=== PATIENT | female | born 1935 | race Caucasian/White ===

== ENCOUNTER → 2023-05-30 11:07 | Outpatient (REF) | payer OTHER, SELFPAY | LOC: HWRCS 11:07 | PROVIDERS: ATTENDING PHYSICIAN Family Medicine | DX: R01.1 Cardiac murmur, unspecified (principal) | CPT/HCPCS: 93306 ==

== ENCOUNTER 2023-12-05 08:30 | Emergency (ER) | payer OTHER, SELFPAY ==
[2023-12-05 08:32] VITALS: BP 142/102
--- NOTE | 2023-12-05 08:38 | ED.GENMED ---
History of Present Illness
General
Chief Complaint: Back Pain
Source: patient
Exam Limitations: none
Time Seen by Provider: 12/05/23 08:35
History of Present Illness
History of Present Illness:
88-year-old female with history of multiple sclerosis and dementia and high blood pressure presents from home via EMS calling ambulance secondary to chest pain that radiates to the left side of the back. This is associated with shortness of breath
and increased pain with breathing. No recent travel. She is not anticoagulated. She states she has been nauseous and belching as well. The pain is on her left side. No fever or cough. No abdominal pain. No other complaints at this time
Past History
Past History
ED Past Medical History: HTN, Psychiatric (anxiety) and Other (MS, C. difficile, hypokalemia, hyponatremia, mild dementia, )
ED Past Surgical History: Cholecystectomy, Gynecological (Hysterectomy) and Other (Bladder lift)
Social History
Tobacco: Non-smoker
Alcohol: None
Personal:
Living: with family
Employment: Retired
Family History
Family History: Other (Noncontributory)
Phy Exam
Physical Exam
Physical Exam:
General: Well-appearing female no acute respiratory distress
HEENT: Normocephalic atraumatic
Heart: Regular rate and rhythm no murmur
Lungs: Clear no wheeze
Abdomen soft nontender nondistended no guarding rebound normal bowel sounds extremities: No cyanosis or edema
Skin: Warm no rash
Course
Orders/Labs/Results
Orders:
Orders
12/05/23 08:31
Electrocardiogram (*1) Urgent
Reason for Study: Chest Pain
EKG- Treatment ONCE
12/05/23 08:37
CT Chest Pe Study Urgent
Comment:
Reason For Exam: chest pain
CR Chest Portable - 1 View Urgent
Comment:
Reason For Exam: chest pain, sob
Reason Study Needs to be Portable: Patient Unstable
12/05/23 09:04
NT-proBNP Urgent
Troponin I Urgent
12/05/23 09:05
Complete Blood Count/With Diff Urgent
12/05/23 09:15
Comprehensive Metabolic Panel Urgent
Lipase Urgent
12/05/23 11:24
Acetaminophen [Tylenol] 650 mg PO NOW STA
Abnormal Lab Results
12/05/23
09:15
BUN 20 H mg/dl
(7-17)
Glucose 107 H mg/dl
(70-99)
Total Bilirubin 1.4 H mg/dl
(0.2-1.3)
12/05/23 09:05
12/05/23 09:15
Vital Signs
Initial and Last Documented VS:
Initial Vital Signs
Pulse Resp BP Pulse Ox
80 17 142/102 94
12/05/23 08:32 12/05/23 08:32 12/05/23 08:32 12/05/23 08:32
Last Documented Vital Signs
Temp Pulse Resp BP Pulse Ox
98.1 F 62 18 129/64 97
12/05/23 08:52 12/05/23 10:00 12/05/23 10:00 12/05/23 10:00 12/05/23 10:00
MDM/Problems Addressed
Differential Diagnosis Includes:
Pleuritic left-sided chest pain. Consider chest wall strain versus pneumonia versus pneumothorax versus PE versus dissection.
Reviewed chart. History of dementia and multiple sclerosis. Not hypoxic nor she tachycardic. Will obtain labs and EKG as well as portable chest x-ray and CT of chest
*Critical Care Note
Total Time (30-74mins, 75-104mins- exclusive of procedures): Not Applicable
Update Note
Update Note:
EKG shows sinus rhythm without acute ischemic changes. Rate of 71
Chest x-ray question mild pulmonary edema. CT of chest was ordered to evaluate for PE or dissection. This was negative study. Patient notes reproducible pain to the left chest. Suspect chest wall discomfort. No rash to suggest shingles upon
reassessment. Will recommend Tylenol or ibuprofen. Stable for discharge. The daughter is in the room currently and spoke with her regarding the she is agreeable to the
ED Attending Note
-
Portions of this chart may have been created with voice recognition software.� Occasional wrong word or��sound alike� substitutions may have occurred due to the inherent limitations of voice recognition software.
Discharge Plan
Departure
Patient Disposition: Home (Routine Discharge)
Date of Disposition: 12/05/23
Time of Disposition: 11:26
Patient with high blood pressure during this ER visit?: No
Discharge Problem:
Pain, chest wall
Instructions: Chest Pain That Is Not Caused by the Heart (DC)
Prescriptions:
No Action
donepezil 5 MG tablet
5 mg PO HS
alprazolam 0.25 MG tablet
0.25 mg PO PRN PRN (Reason: anxiety)
pantoprazole 40 MG tablet,delayed release (DR/EC)
40 mg PO PRN PRN (Reason: stomach pain)
memantine 10 MG tablet
10 mg PO BID
metoprolol succinate [Toprol XL] 50 MG tablet extended release 24 hr
50 mg PO DAILY
amlodipine [Norvasc] 5 mg Tablet
5 mg PO DAILY
lidocaine 5 % adhesive patch,medicated
1 patch topical DAILY 15 Days Qty: 15 0RF
Referrals:
Alexi Lewis Jr., DO [Family Provider] -
Activity Restrictions/Additional Instructions:
Workup today is negative for any obvious acute cardiac or pulmonary problem. This may be a muscular strain. You may use ibuprofen or Tylenol for pain. Return here for worsening symptoms otherwise follow-up with your doctor
Interventions
Interventions:
*Risk Screen - Suicide Last Done: 12/05/23 08:36
*Neglect/Abuse Screening Last Done: 12/05/23 08:35
ED- Fall Risk Assessment Last Done: 12/05/23 08:37
*ED COVID-19 Vaccine History Last Done: 12/05/23 08:35
ED- Cardiac Assessment Last Done: 12/05/23 08:45
ED-Musculoskeletal Assessment Last Done: 12/05/23 09:26
Discharge Date and Time
Print Language: KYRGYZ
[2023-12-05 09:00] VITALS: BP 140/108
[2023-12-05 09:27] LABS: % Basophils 0.5 % (0-2); % Eosinophils 2.1 % (0-6); % Immature Granulocytes 0.3 % (0-0.5); % Lymphocytes 23.6 % (20.5-51.1); % Monocytes 7.5 % (1.7-9.3); Absolute Eosinophils 0.1 10^3/uL (0-0.7); Absolute Lymphocytes 1.4 10^3/uL (1.2-3.4); Absolute Monocytes 0.5 10^3/uL (0.1-0.6); Mean Corp Hgb Conc. 33.3 g/dL (33.0-37.0); Mean Corpuscular Hgb 30.9 pg (27.0-31.0); Mean Corpuscular Volume 92.7 fL (81.0-99.0); Mean Platelet Volume 8.9 fL (7.4-10.4); Nucleated Red Blood Cells % 0 %; Platelet Count 271 10^3/uL (130-400); Red Blood Cell Count 4.53 10^6/uL (4.20-5.40); Red Cell Dist. Width 12.6 % (11.5-14.5); White Blood Cell Count 6.1 10^3/uL (4.8-10.8)
[2023-12-05 09:48] LABS: ALT (SGPT) 14 U/L (0-35); AST (SGOT) 22 U/L (14-36); Albumin 4.2 g/dl (3.5-5.0); Alkaline Phosphatase 106 U/L (38-126); Blood Urea Nitrogen 20 mg/dl (7-17); Carbon Dioxide 25 mmol/L (22-30); Chloride 104 mmol/L (98-107); Glucose 107 mg/dl (70-99); Lipase 67 U/L (23-300); Potassium 4.2 mmol/L (3.5-5.1); Sodium 142 mmol/L (135-145); Total Bilirubin 1.4 mg/dl (0.2-1.3); eGFR > 60.00
[2023-12-05 09:55] LABS: NT-proBNP 235 pg/ml; Troponin I < 0.012 ng/ml
[2023-12-05 10:00] VITALS: BP 129/64
[2023-12-05 11:00] VITALS: BP 145/75
[2023-12-05] MEDS: TYLENOL 650 MG PO (11:30)
== END 2023-12-05 12:31 | disposition home or self-care (01) ==
LOC: EMR 08:30
PROVIDERS: Physician Assistant; EMERGENCY PHYSICIAN Emergency Medicine; FAMILY PHYSICIAN Family Medicine
DX: R07.89 Other chest pain (principal); I10 Essential (primary) hypertension; F03.90 Unspecified dementia, unspecified severity, without behavioral disturbance, psychotic disturbance, mood disturbance, and anxiety; Z90.49 Acquired absence of other specified parts of digestive tract; Z90.710 Acquired absence of both cervix and uterus; G35 Multiple sclerosis
CPT/HCPCS: 99285; 71045; 71275; 80053; 83690; 83880; 84484; 85025; 93005; Q9967

== ENCOUNTER → 2023-12-14 11:42 | Outpatient (REF) | payer OTHER, SELFPAY | LOC: HWRAD 11:42 | PROVIDERS: ATTENDING PHYSICIAN Family Medicine | DX: M51.34 Other intervertebral disc degeneration, thoracic region (principal) | CPT/HCPCS: 72072 ==

== ENCOUNTER → 2023-12-29 12:12 | Outpatient (REF) | payer OTHER, SELFPAY | LOC: MRI 3T 12:12 | PROVIDERS: ATTENDING PHYSICIAN Pain Medicine Interventional Pain Medicine; FAMILY PHYSICIAN Family Medicine | DX: S22.060A Wedge compression fracture of T7-T8 vertebra, initial encounter for closed fracture (principal) | CPT/HCPCS: 72146 ==

== ENCOUNTER → 2024-03-19 11:57 | Outpatient (REF) | payer OTHER, SELFPAY | LOC: HWRAD 11:57 | PROVIDERS: ATTENDING PHYSICIAN Family Medicine | DX: S22.000A Wedge compression fracture of unspecified thoracic vertebra, initial encounter for closed fracture (principal) | CPT/HCPCS: 71046; 72072 ==

== ENCOUNTER 2024-03-31 09:50 | Inpatient (IN) | payer OTHER, SELFPAY ==
[2024-03-30 19:08] VITALS: BP 140/70
[2024-03-30 19:21] LABS: % Basophils 0.3 % (0-2); % Immature Granulocytes 0.3 % (0-0.5); % Lymphocytes 18.7 % (20.5-51.1); % Monocytes 14.7 % (1.7-9.3); Absolute Lymphocytes 0.6 10^3/uL (1.2-3.4); Absolute Monocytes 0.4 10^3/uL (0.1-0.6); Hematocrit 32.4 % (37.0-47.0); Hemoglobin 11.2 g/dL (12.0-16.0); Mean Corp Hgb Conc. 34.6 g/dL (33.0-37.0); Mean Corpuscular Hgb 30.7 pg (27.0-31.0); Mean Corpuscular Volume 88.8 fL (81.0-99.0); Mean Platelet Volume 8.7 fL (7.4-10.4); Nucleated Red Blood Cells % 0 %; Platelet Count 138 10^3/uL (130-400); Red Blood Cell Count 3.65 10^6/uL (4.20-5.40); Red Cell Dist. Width 13.3 % (11.5-14.5)
[2024-03-30 19:39] LABS: COVID-19 Antigen Negative (Negative)
--- NOTE | 2024-03-30 19:39 | ED.GENMED ---
History of Present Illness
General
Chief Complaint: Cold/Flu/URI Symptoms
Source: patient
Exam Limitations: none
Time Seen by Provider: 03/30/24 19:18
History of Present Illness
History of Present Illness:
88yoF with a history of multiple sclerosis and hypertension presenting via EMS for evaluation after syncopal episode. Patient has not been feeling well for the past 2 days. She states she has been in bed mostly and has not been eating due to
decreased appetite. It is patient's 's birthday today and she went down to the kitchen to eat some dinner with her family. While she was sitting at the dining room table, she recalls feeling very flushed. She took off her robe due to her
symptoms. The next thing she remembers her family was calling 911 and telling her that she passed out. She believes she was only unconscious for about 1 to 2 minutes. She believes she was dizzy beforehand but is not sure. She denies any chest
pain or shortness of breath. Patient did not fall during the incident and was still in her chair when she regained consciousness. Of note, her is also sick with similar symptoms.
Past History
Past History
ED Past Medical History: HTN, Psychiatric (anxiety) and Other (MS, C. difficile, hypokalemia, hyponatremia, mild dementia, )
ED Past Surgical History: Cholecystectomy, Gynecological (Hysterectomy) and Other (Bladder lift)
Social History
Tobacco: Non-smoker
Alcohol: None
Personal:
Living: with family
Employment: Retired
Family History
Family History: Other (Noncontributory)
Phy Exam
General Physical Exam
General Presentation: well appearing and no apparent distress
General age: appears stated age
General Skin: warm and dry
General Habitus: normal
General Mental: alert
ENT Exam
ENT Exam: normocephalic
Cardiovascular Exam
Cardiovascular Exam: regular rate/rhythm and no murmur
Pulmonary Exam
Pulmonary Exam: lungs clear, no respiratory distress, no rales, no crackles and no rhonchi
Gastrointestinal Exam
Gastrointestinal Exam: non tender, soft and non distended
Neurological Exam
Neurological Exam: alert
[place] Coma Scale
Eye Opening: Spontaneous
Verbal Response: Oriented
Motor Response: Obeys Commands
GCS Total Score: 15
Skin Exam
Skin Exam: normal color and warm/dry
Psychiatric Exam
Psychiatric Exam: normal mood/affect
Course
Orders/Labs/Results
Orders:
Orders
03/30/24 19:07
Electrocardiogram (*1) Urgent
Reason for Study: Syncope
03/30/24 19:08
EKG- Treatment ONCE
03/30/24 19:14
COVID-19 Antigen Urgent
Source: Nasal Swab
Complete Blood Count/With Diff Urgent
Comprehensive Metabolic Panel Urgent
Magnesium Urgent
Comment: ADD ON
Influenza A+B Rapid Molecular Urgent
MARIBEL Source: Nasal Swab
Specimen Description:
03/30/24 19:56
Add On- LAB Urgent
Tests Added?: magnesium
0.9% Sodium Chloride 500 ml [Nss] 500 ml IV BOLUS
Potassium Chloride [KCl] 40 meq PO NOW STA
03/30/24 20:46
Troponin I Urgent
03/30/24 23:00
Flush (0.9% Sodium Chloride) [Flush (Nss)] See Dose Instructions IV PER PROTOCOL
03/31/24 00:23
Admit/Transfer Patient As Directed
Co-Sign Provider:
Level of Care: Observation services
Assign to:: Telemetry
Physician / Group: hospitalist
Diagnosis: influenza
Reason for Telemetry: Syncope
Date to Stop Telemetry: 04/02/24
Time to Stop Telemetry: 11:00
PRN Pain Medication Management As Directed
May give lesser potent ordered pain med per pt: Yes
preference::
Protocol:: Medication orders for pain may be administered in a
manner that supports deferring to patient preference
when the pt is:
- Requesting an ordered lesser potent pain medication.
Least to most potent pain medications are defined
as: acetaminophen < NSAID < tramadol < opioids
(morphine, oxycodone, hydromorphone).
- Requesting a lesser dose of the same medication IF
ORDERED.
- Requesting a less intrusive route of administration
if both routes are prescribed by the provider (PO <
IV).
03/31/24 00:24
Code Status As Directed
Resuscitation Status: Full Code
03/31/24 00:39
PRN Pain Medication Management As Directed
May give lesser potent ordered pain med per pt: Yes
preference::
Protocol:: Medication orders for pain may be administered in a
manner that supports deferring to patient preference
when the pt is:
- Requesting an ordered lesser potent pain medication.
Least to most potent pain medications are defined
as: acetaminophen < NSAID < tramadol < opioids
(morphine, oxycodone, hydromorphone).
- Requesting a lesser dose of the same medication IF
ORDERED.
- Requesting a less intrusive route of administration
if both routes are prescribed by the provider (PO <
IV).
03/31/24 02:24
0.9% Sodium Chloride 1000 ml [Nss] 1,000 ml IV 75 mls/hr
Acetaminophen [Tylenol] 650 mg PO Q4HPRN PRN
Bisacodyl [Dulcolax] 10 mg RECTAL [id number] PRN
Docusate W/Senna [Senokot-S] 1 tablet PO BIDPRN PRN
Ondansetron Injectable [Zofran] 4 mg IV Q6HPRN PRN
Polyethylene Glycol Powder [Miralax] 17 grams PO DAILYPRN PRN
03/31/24 02:24
Activity As Directed
Activity Level: With Assistance
Vital Signs As Directed
Frequency: Per unit guidelines
Pulse Ox/spot Check [RESP] Routine
Quantity: 1
Pt Eval And Treat Routine
Activity Level: With Assistance
DX Deep Vein Thrombosis Video Routine
03/31/24 Breakfast
Regular
At Your Request: Full Participation
Basic Metabolic Panel IN AM
Complete Blood Count/No Diff IN AM
03/31/24 08:00
Alprazolam [Xanax] 0.25 mg PO TID
Amlodipine [Norvasc] 5 mg PO DAILY
Aspirin Low Dose EC [Aspir Low (Enteric Coated)] 81 mg PO DAILY
Memantine HCl [Namenda] 10 mg PO BID
Metoprolol Xl [Toprol Xl] 50 mg PO DAILY
Mirabegron Extended Release [Myrbetriq Extended Release] 25 mg PO DAILY
Pantoprazole [Protonix] 40 mg PO DAILY
teriflunomide [Aubagio] See Dose Instructions PO DAILY
03/31/24 18:00
Enoxaparin Sodium [Lovenox] 40 mg SC QPM
03/31/24 22:00
Donepezil [Aricept] 5 mg PO HS
04/02/24 11:00
DC Protocol for Telemetry ONCE
Abnormal Lab Results
03/30/24
19:14
WBC 3.0 L 10^3/uL
(4.8-10.8)
RBC 3.65 L 10^6/uL
(4.20-5.40)
Hgb 11.2 L g/dL
(12.0-16.0)
Hct 32.4 L %
(37.0-47.0)
Absolute Lymphs (auto) 0.6 L 10^3/uL
(1.2-3.4)
Lymphocytes % 18.7 L %
(20.5-51.1)
Monocytes % 14.7 H %
(1.7-9.3)
Sodium 132 L mmol/L
(135-145)
Potassium 3.1 L mmol/L
(3.5-5.1)
Carbon Dioxide 21 L mmol/L
(22-30)
Creatinine 0.5 L mg/dL
(0.6-1.0)
Glucose 118 H mg/dl
(70-99)
Calcium 7.4 L mg/dl
(8.4-10.2)
AST 55 H U/L
(14-36)
Total Protein 5.7 L g/dl
(6.3-8.2)
Albumin 3.2 L g/dl
(3.5-5.0)
03/30/24 19:14
03/30/24 19:14
Vital Signs
Initial and Last Documented VS:
Initial Vital Signs
Pulse Resp Pulse Ox
80 22 93
03/30/24 19:02 03/30/24 19:02 03/30/24 19:02
Last Documented Vital Signs
Temp Pulse Resp BP Pulse Ox
98.6 F 82 17 145/78 92
03/30/24 19:08 03/31/24 02:19 03/31/24 02:19 03/31/24 02:00 03/31/24 02:00
MDM/Problems Addressed
Differential Diagnosis Includes:
88yoF here after a syncopal episode. Sick x 2 days and has not gotten out of bed. Had a syncopal episode this evening which was preceded by a flushed sensation. Denies CP/SOB. Hx of MS. She is afebrile and hemodynamically stable. She is
well-appearing no acute distress. Differential diagnosis includes but is not limited to: Viral illness, dehydration, vasovagal episode, cardiogenic syncope
Initial ED plan: Check cardiac labs, COVID/flu swab, and EKG. IV fluid bolus.
*EKG
Interpreted by ED Provider?: Yes
EKG Intrepretation Date: 03/30/24
Heart Rate: 81
Rate: normal
Rhythm: sinus
[place]: normal axis
Interval: normal interval
QRS Pattern: normal QRS
Ischemia: no ischemia
*Critical Care Note
Total Time (30-74mins, 75-104mins- exclusive of procedures): Not Applicable
Update Note
Update Note:
Patient is positive for influenza A. Potassium 3.1 which was replaced. EKG shows normal sinus rhythm without ischemic changes and troponin is normal. Given degree of weakness, will admit for further evaluation and management.
ED Attending Note
-
Portions of this chart may have been created with voice recognition software.� Occasional wrong word or��sound alike� substitutions may have occurred due to the inherent limitations of voice recognition software.
Discharge Plan
Departure
Patient Disposition: Admit
Date of Disposition: 03/30/24
Time of Disposition: 21:40
Presentation/result/management discussed w/ accepting MD/DO: Hospitalist
Discharge Problem:
Influenza A, Syncope
Interventions
Interventions:
*Risk Screen - Suicide Last Done: 03/30/24 19:08
*General Assessment Last Done: 03/30/24 19:08
*Neglect/Abuse Screening Last Done: 03/30/24 19:08
*ED COVID-19 Vaccine History Last Done: 03/30/24 19:08
ED- Pulmonary Assessment Last Done: 03/30/24 19:10
[2024-03-30 19:46] LABS: ALT (SGPT) 26 U/L (0-35); AST (SGOT) 55 U/L (14-36); Albumin 3.2 g/dl (3.5-5.0); Alkaline Phosphatase 82 U/L (38-126); Blood Urea Nitrogen 11 mg/dl (7-17); Calcium 7.4 mg/dl (8.4-10.2); Carbon Dioxide 21 mmol/L (22-30); Chloride 102 mmol/L (98-107); Glucose 118 mg/dl (70-99); Potassium 3.1 mmol/L (3.5-5.1); Sodium 132 mmol/L (135-145); Total Bilirubin 0.7 mg/dl (0.2-1.3); Total Protein 5.7 g/dl (6.3-8.2); eGFR > 60.00
[2024-03-30 20:00] VITALS: BP 137/71
[2024-03-30 20:11] LABS: Magnesium 1.7 mg/dl (1.6-2.3)
[2024-03-30] MEDS: NSS 500 IV (20:40)
[2024-03-30] MEDS: KCL 40 MEQ PO (20:40)
[2024-03-30 21:00] VITALS: BP 137/83
[2024-03-30 21:17] LABS: Troponin I < 0.012 ng/ml
[2024-03-30 22:00] VITALS: BP 149/83
[2024-03-30 23:00] VITALS: BP 137/76
[2024-03-31] VITALS (13 sets, daily range): BP systolic 113–152; BP diastolic 65–84; O2SAT 85; BMI 27.9
--- NOTE | 2024-03-31 00:38 | HPS.HSE ---
Family Physician
-
Family Physician: Alexi Lewis
Chief Complaint
-
Weakness and lethargy, flulike symptoms
History of Present Illness
This is a 88-year-old female with past medical history significant for Parkinson's, MS, mild dementia, hypertension and GERD who presents to the emergency department with weakness for 3 days and found to have influenza.
Patient tells me that she has been sick for about 3 days. She has been laying in bed, getting up and has decreased appetite. She feels fatigued. She has a mild nonproductive cough. Denies shortness of breath. Patient reported that she has sick
contacts with friends of family member a few days ago but she could not state exactly when. She has had a prior episode of influenza and she states this feels similar to that. She denies having any fevers or chills.
Family saw her today while trying to celebrate her spouses but they, she went down to the kitchen to eat some dinner with her family and while at the dining room table she recalls feeling very flushed. She apparently then had a syncopal episode.
Family believe she was only unconscious for about 1 to 2 minutes. Patient feels that she had may have been dizzy before hand but she is not sure. She denies any chest pain, palpitations.
Patient reports that she had been having some loose stools frequently with mild urinary incontinence and some diarrhea. She usually has constipation. She reports her spouse is sick with similar symptoms.
In the emergency department she was afebrile, blood pressure was 120/80 with a pulse of 82 she was satting well 95% on 1 L. CBC was unremarkable. Electrolytes were notable for a sodium of 132, potassium of 3.1, normal BUN and creatinine. ECG with
normal sinus rhythm, troponin negative.
Medical History
Past Medical History
Past Medical History: Reports GERD, HTN and Other (Parkinson disease, multiple sclerosis, lower urinary tract symptoms,)
Past Surgical History: Reports Other
Social History
Tobacco: Non-smoker
Alcohol: None
Drug: None
Personal:
Living: With Family
Employment: Retired
Family History
Family History: Not pertinent
Allergies / Home Medications
Allergies reflects when Allergies were last updated in [employer].
Home Medications with original date entered in [employer]
Allergy/Medication List:
Allergies
Allergy/AdvReac Type Severity Reaction Status Date / Time
No Known Drug Allergies Allergy Unknown Verified 12/11/22 20:00
Home Medications
alprazolam 0.25 mg tablet 0.25 mg PO TID anxiety 10/02/20
donepezil 5 mg tablet 5 mg PO HS parkinson 10/02/20
memantine 10 mg tablet 10 mg PO BID memory 10/02/20
metoprolol succinate 50 mg tablet,extended release 24 hr (Toprol XL) 50 mg PO DAILY Blood pressure 10/02/20
pantoprazole 40 mg tablet,delayed release 40 mg PO PRN 10/02/20
amlodipine 5 mg tablet (Norvasc) 5 mg PO DAILY Blood Pressure 12/11/22
aspirin 81 mg tablet,delayed release 81 mg PO DAILY 03/30/24
mirabegron 25 mg tablet,extended release 24 hr (Myrbetriq) 25 mg PO DAILY 03/30/24
teriflunomide 7 mg tablet (Aubagio) 7 mg PO DAILY 03/30/24
Review of Systems
-
History Source: Patient
Constitutional: Reports Fatigue
EENT: Reports No Symptoms
Respiratory: Reports Cough
Cardiac: Reports No Symptoms
Abdomen/GI: Reports No Symptoms
: Reports Incontinence
Musculoskeletal: Reports No Symptoms
Skin: Reports No Symptoms
Neurological: Reports Weakness
Endocrine: Reports No Symptoms
Hematologic/Lymphatic: Reports No Symptoms
Psych: Reports No Symptoms
Physical Exam
Vital Signs
Vital Signs
Temp Pulse Resp BP Pulse Ox
98.6 F 82 31 122/84 94
03/30/24 19:08 03/31/24 00:15 03/31/24 00:15 03/31/24 00:00 03/31/24 00:15
Physical Exam
General: Well Developed, Well Nourished, Comfortable, Conversant and Poor Appetite
HEENT: NormoCephalic, Anicteric, Atraumatic, PERRLA and Oxygen
Respiratory: Clear
Cardiac: S1/S2 and Regular Rhythm
GI: Soft, Non Tender, Non Distended and Normal Bowel Sounds
Rectal: Deferred by Provider
Genito-urinary: Deferred by me
Musculoskeletal: No Clubbing, No Cyanosis and No Edema
Skin: Warm
Neuro: AO x 3 and Nonfocal/grossly intact
Hematologic/Lymphatic: No Lymphadenopathy
Psych: Calm
Laboratory Results
-
03/30/24 19:14
03/30/24 19:14
Laboratory Results
Total Bilirubin 0.7 mg/dl (0.2-1.3) 03/30/24 19:14
AST 55 U/L (14-36) H 03/30/24 19:14
ALT 26 U/L (0-35) 03/30/24 19:14
Alkaline Phosphatase 82 U/L (38-126) 03/30/24 19:14
Troponin I < 0.012 ng/ml 03/30/24 20:46
Data Reviewed
-
Medical Tests (Nuc Med, Echo, EKG etc): Image Personally Visualized and interpreted
Lab Data: Labs Reviewed by me
Old Records: Reviewed
Impression/Plan
-
IMPRESSION:
88-year-old with history of multiple sclerosis, hypertension and mild dementia presents to the emergency department following 3 days of weakness and flulike symptoms at home. She had a presyncopal episode today and appears to have been unresponsive
for about a minute. Initial evaluation in the ED is positive for influenza. She has loss of appetite and had decreased p.o. intake she has been laying in bed for about 3 days. Spouse with similar symptoms. She has mild hyponatremia with mild
hypokalemia. Electrolytes are otherwise unremarkable BUN stable. ECG is nonischemic and troponin is negative.
PLAN:
Influenza - Mild oxygen requirement, weakness. On immunosuppresants and symptoms began 3 days ago
- admit to telemetry observation
- start tamiflu for now
- supplemental oxygen, wean as needed
- supportive care
- PT evaluation
Syncope/presyncope - suspect secondary to hypovolemia
- telemetry x 24 hours
- continue iv fluids
- orthostatic vs
- check u/a
- hold off on echo at this time
MS
- continue home aubagio
- continue mirabegron
DVT PPX - lovenox
Code status - full code
[2024-03-31] MEDS: TAMIFLU 75 MG PO ×3 (02:09→20:29)
[2024-03-31] MEDS: FLUSH (NSS) 1 FLUSH IV (02:09)
[2024-03-31] MEDS: NSS 1000 IV ×2 (02:35→16:17)
[2024-03-31 05:35] LABS: Hematocrit 36.2 % (37.0-47.0); Hemoglobin 12.6 g/dL (12.0-16.0); Mean Corp Hgb Conc. 34.8 g/dL (33.0-37.0); Mean Corpuscular Volume 88.9 fL (81.0-99.0); Mean Platelet Volume 8.6 fL (7.4-10.4); Platelet Count 132 10^3/uL (130-400); Red Blood Cell Count 4.07 10^6/uL (4.20-5.40); Red Cell Dist. Width 13.4 % (11.5-14.5); White Blood Cell Count 3.5 10^3/uL (4.8-10.8)
[2024-03-31 05:52] LABS: Urine Albumin 1+ (Neg - Trace); Urine Bilirubin Negative (Negative); Urine Character Slightly Cloudy (Clear); Urine Color Yellow; Urine Glucose Negative (Negative); Urine Ketone 3+ (Negative); Urine Leukocyte 3+ (Negative); Urine Nitrite Negative (Negative); Urine Occult Blood 4+ (Negative); Urine Urobilinogen Negative (Neg - 1+)
[2024-03-31 05:58] LABS: Blood Urea Nitrogen 9 mg/dl (7-17); Calcium 7.7 mg/dl (8.4-10.2); Carbon Dioxide 23 mmol/L (22-30); Chloride 104 mmol/L (98-107); Glucose 86 mg/dl (70-99); Potassium 3.9 mmol/L (3.5-5.1); Sodium 136 mmol/L (135-145); eGFR > 60.00
[2024-03-31 06:38] LABS: Urine Amorphous Seen; Urine Bacteria Many (Negative); Urine Squamous Cell >30 /LPF (Few)
[2024-03-31] MEDS: ASPIR LOW (ENTERIC COATED) 81 MG PO (08:04)
[2024-03-31] MEDS: PROTONIX 40 MG PO (08:04)
[2024-03-31] MEDS: XANAX 0.25 MG PO ×3 (08:05→23:05)
[2024-03-31] MEDS: NAMENDA 10 MG PO ×2 (08:05→20:29)
[2024-03-31] MEDS: TOPROL XL 50 MG PO (08:06)
[2024-03-31] MEDS: NORVASC 5 MG PO (08:06)
[2024-03-31] MEDS: MYRBETRIQ EXTENDED RELEASE 25 MG PO (08:06)
[2024-03-31 08:54] LABS: ALT (SGPT) 29 U/L (0-35); AST (SGOT) 60 U/L (14-36); Albumin 3.4 g/dl (3.5-5.0); Alkaline Phosphatase 85 U/L (38-126); Total Bilirubin 0.6 mg/dl (0.2-1.3); Total Protein 6.1 g/dl (6.3-8.2)
--- NOTE | 2024-03-31 08:59 | PTCARENOTE ---
attempted to remove patient oxygen-- Patient pulse ox down down to 85% on RA. Reapplied oxygen at this time. now 97% on 2L NC
--- NOTE | 2024-03-31 09:33 | W.PN.HOSP.TC ---
Today's Communication/Plan
-
see outlined plan
Assessment / Plan
Assessment / Plan
Assessment:
Acute hypoxic respiratory insufficiency on 1-2L NC
- related to influenza
- wean O2 as able
Early sepsis (tachypnea, leukopenia)
Acute influenza A infection
- continue Tamiflu, day 1
- continue supportive care
- CXR pending
possible UTI
Hx of prolapsed uterus
- start Rocephin, day 1 pending cultures
Syncope/pre-syncope
- monitor tele
- continue IVF
Acute hyponatremia - resolved
Acute hypokalemia - resolved
Hypocalcemia - monitor
Generalized weakness
- PT/OT evals
Hx of C. Diff
- Vanco BID
Hx of MS
- hold Aubagio - immunosuppression agent
- hold Mirabegron
Dementia
- unknown subtype
- continue Memantine/Donepezil/Xanax
Essential HTN
- continue BB
DVT ppx: Lovenox
Code: Full
Non-billable for 03/31 date of service (H&P on same date)
Anticipated Discharge: > 48 hours
Subjective/Interval History
-
Date of Service: March 31, 2024
denies any chest pain or SOB
per [employer], 85% on RA when trialled off O2
Objective Data
-
Labs:
Laboratory Results
03/31/24 03/31/24
05:23 05:24
WBC 3.5 L
Hgb 12.6
Hct 36.2 L
Plt Count 132
Sodium 136
Potassium 3.9 D
Chloride 104
Carbon Dioxide 23
BUN 9
Creatinine 0.4 L
Glucose 86
Calcium 7.7 L
Total Bilirubin 0.6
AST 60 H
ALT 29
Alkaline Phosphatase 85
Vital Signs:
Vital Signs
Temp Pulse Resp BP Pulse Ox
99.2 F 77 18 134/75 94
03/31/24 08:31 03/31/24 08:31 03/31/24 08:31 03/31/24 08:31 03/31/24 08:31
Physical Exam
-
General: No Apparent Distress and Other (appears tired)
HEENT: Normocephalic and Atraumatic
Respiratory: Decreased Breath Sounds; Negative Wheezes
Cardiac: Regular Rhythm and S1/S2
GI: Soft
Musculoskeletal: No Edema
Neuro: AO x 3
Psych: Calm
Data Reviewed
-
Total Time Spent with Patient (in minutes): 44
Labs: Labs Reviewed by me
[2024-03-31] MEDS: MUCINEX 1200 MG PO ×2 (10:17→20:29)
[2024-03-31] MEDS: ROCEPHIN 1000 MG IV (10:19)
[2024-03-31] MEDS: STERILE WATER FOR INJECTION 10 ML IV (10:21)
[2024-03-31] MEDS: FIRVANQ 125 MG PO ×2 (10:21→23:05)
--- NOTE | 2024-03-31 12:31 | TRANSFER ---
pt arrived to unit at 10:33 AM via stretcher from ED. pt ambulated from hallway to bed with assist x2 with the RW, pt wearing 2L NC and connected to IVF. pt stopped at bathroom first prior to going to the bed, had small BM. pt noted streaks of
bright red blood on toilet paper after wiping, has been occurring prior to admission. Pt unable to note history of hemorrhoids. Pt myrna/butt excoriated with MASD, blanchable redness. barrier ointment provided for pt. assessment completed by this
nurse. admissions completed by RN Ravi, pt daughter at the bedside. low grade temp 100, other VSS. connected to tele #[id number] running NSR. Pt history of dementia, bed alarm placed on pt, educated to ring for assistance with all activity.
[2024-03-31] MEDS: LOVENOX 40 MG SC (17:25)
[2024-03-31] MEDS: ARICEPT 5 MG PO (23:05)
[2024-04-01 03:00] VITALS: BP 155/88
--- NOTE | 2024-04-01 03:28 | PTCARENOTE ---
Pt found standing at bedside after hitting call bernal stating her attends was wet, that she needed to get changed, and that she didn't want to 'get the bed wet.' Pt had nasal cannula in place and IVF infusing at that time and educated patient on
fall risk. Bed alarm placed. After 3am vitals was done, patient attempting to get OOB to use bathroom. Attempted to redirect patient due to nasal cannula and IVF infusing that she needs to wait for assistance, but patient difficult to redirect.
IV site noted to be bleeding but continues to infuse without issue. Bed alarm remains in place after returning to bathroom and commode now at bedside.
[2024-04-01] MEDS: NSS 1000 IV (05:08)
[2024-04-01 07:35] VITALS: BP 140/75
[2024-04-01 07:45] LABS: % Basophils 0.4 % (0-2); % Eosinophils 0.4 % (0-6); % Immature Granulocytes 0.4 % (0-0.5); % Lymphocytes 40.6 % (20.5-51.1); % Monocytes 13.5 % (1.7-9.3); % Neutrophils 44.7 % (42.2-75.2); Absolute Monocytes 0.3 10^3/uL (0.1-0.6); Absolute Neutrophils 1.1 10^3/uL (1.4-6.5); Hematocrit 35.4 % (37.0-47.0); Hemoglobin 11.6 g/dL (12.0-16.0); Mean Corp Hgb Conc. 32.8 g/dL (33.0-37.0); Mean Corpuscular Hgb 30.3 pg (27.0-31.0); Mean Corpuscular Volume 92.4 fL (81.0-99.0); Mean Platelet Volume 9.1 fL (7.4-10.4); Nucleated Red Blood Cells % 0 %; Platelet Count 115 10^3/uL (130-400); Red Blood Cell Count 3.83 10^6/uL (4.20-5.40); Red Cell Dist. Width 13.7 % (11.5-14.5); White Blood Cell Count 2.5 10^3/uL (4.8-10.8)
[2024-04-01 08:09] LABS: ALT (SGPT) 24 U/L (0-35); AST (SGOT) 47 U/L (14-36); Albumin 2.9 g/dl (3.5-5.0); Alkaline Phosphatase 77 U/L (38-126); Blood Urea Nitrogen 6 mg/dl (7-17); Calcium 7.4 mg/dl (8.4-10.2); Carbon Dioxide 24 mmol/L (22-30); Chloride 108 mmol/L (98-107); Estimated Creatinine Clearance 60 ml/min; Glucose 84 mg/dl (70-99); Potassium 3.4 mmol/L (3.5-5.1); Sodium 137 mmol/L (135-145); Total Bilirubin 0.5 mg/dl (0.2-1.3); Total Protein 5.3 g/dl (6.3-8.2); eGFR > 60.00
[2024-04-01] MEDS: XANAX 0.25 MG PO (08:28)
[2024-04-01] MEDS: NAMENDA 10 MG PO (08:28)
[2024-04-01] MEDS: PROTONIX 40 MG PO (08:28)
[2024-04-01] MEDS: TAMIFLU 75 MG PO (08:28)
[2024-04-01] MEDS: ASPIR LOW (ENTERIC COATED) 81 MG PO (08:29)
[2024-04-01] MEDS: TOPROL XL 50 MG PO (08:29)
[2024-04-01] MEDS: MUCINEX 1200 MG PO (08:30)
[2024-04-01] MEDS: NORVASC 5 MG PO (08:30)
[2024-04-01] MEDS: KCL 40 MEQ PO (08:31)
[2024-04-01] MEDS: FIRVANQ 125 MG PO (08:44)
[2024-04-01] MEDS: ROCEPHIN 1000 MG IV (10:02)
[2024-04-01] MEDS: STERILE WATER FOR INJECTION 10 ML IV (10:03)
[2024-04-01 11:20] VITALS: BP 119/79
--- NOTE | 2024-04-01 12:03 | PTCARENOTE ---
removed 2L NC from pt. stating 97% on RA. pt dropped to 95% while talking. pt denies feeling SOB. notified Dr. Godoy via tt. requested ambulatory pulse ox from resp per Dr. Godoy. Pt remains on RA at this time.
[2024-04-01 13:05] VITALS: BP 122/71; PULSE 67; O2SAT 93
--- NOTE | 2024-04-01 14:13 | W.PN.HOSP.TC ---
Today's Communication/Plan
-
dc home/VN
Assessment / Plan
Assessment / Plan
Assessment:
Acute hypoxic respiratory insufficiency on 1-2L NC
- related to influenza
- weaned to RA, 90% or more with ambulation and rest
Early sepsis (tachypnea, leukopenia)
Acute influenza A infection
- continue Tamiflu, day 2/5
- continue supportive care
- CXR negative
possible UTI
Hx of prolapsed uterus
- s/p Rocephin x 2 doses
- 5 further days of Cefdinir for 7 day course
Syncope/pre-syncope
- monitor tele
- continue IVF
Acute hyponatremia - resolved
Acute hypokalemia - resolved
Hypocalcemia - monitor
Generalized weakness
- PT/OT evals
Hx of C. Diff
- Vanco BID for prophylaxis x 1 week beyond Cefdinir
Hx of MS
- hold Aubagio - immunosuppression agent
- hold Mirabegron
Dementia
- unknown subtype
- continue Memantine/Donepezil/Xanax
Essential HTN
- continue BB
DVT ppx: Lovenox
Code: Full
More than 30 minutes spent in discharge including
Final examination of the patient
Summarizing hospital stay
Instructions for continuing care to all relevant caregivers
Preparation of discharge records, prescriptions, and referral forms
Total time spent (in minutes): 41
Anticipated Discharge: Today
Subjective/Interval History
-
Date of Service: April 01, 2024
resting comfortably
off O2
Objective Data
-
Labs:
Laboratory Results
04/01/24
07:11
WBC 2.5 L
Hgb 11.6 L
Hct 35.4 L
Plt Count 115 L
Sodium 137
Potassium 3.4 L
Chloride 108 H
Carbon Dioxide 24
BUN 6 L
Creatinine 0.5 L
Glucose 84
Calcium 7.4 L
Total Bilirubin 0.5
AST 47 H
ALT 24
Alkaline Phosphatase 77
Vital Signs:
Vital Signs
Temp Pulse Resp BP Pulse Ox
99.1 F 75 20 119/79 97
04/01/24 11:20 04/01/24 11:20 04/01/24 11:20 04/01/24 11:20 04/01/24 12:00
I&O
03/31/24 04/01/24 04/02/24
06:59 06:59 06:59
Intake Total 2039
Balance 2039
Physical Exam
-
General: No Apparent Distress
HEENT: Normocephalic and Atraumatic
Respiratory: Rhonchi; Negative Wheezes
Cardiac: Regular Rhythm and S1/S2
Genito-urinary: No Costovertebral Tender
Musculoskeletal: No Edema
Neuro: AO x 3
Hematologic / Lymphatic: No Lymphadenopathy
Psych: Calm
Data Reviewed
-
Total Time Spent with Patient (in minutes): 41
Labs: Labs Reviewed by me
--- NOTE | 2024-04-01 14:22 | W.DS.TRANS ---
DC Summary - [facility]
-
Discharge Instructions:
Discharge Diagnosis/Procedures influenza A infection, UTI + c. Diff prophylaxis
Diet Regular
Activity As tolerated
Bathing Restrictions None
Other Services VN
Instructions:
Stand-Alone Forms:
Changes to Home Medications: No
Discharge Medications:
DC Medications w/original date entered in [email or web address]
alprazolam 0.25 mg tablet 0.25 mg PO TID anxiety 10/02/20
donepezil 5 mg tablet 5 mg PO HS parkinson 10/02/20
memantine 10 mg tablet 10 mg PO BID memory 10/02/20
metoprolol succinate 50 mg tablet,extended release 24 hr (Toprol XL) 50 mg PO DAILY Blood pressure 10/02/20
pantoprazole 40 mg tablet,delayed release 40 mg PO PRN 10/02/20
amlodipine 5 mg tablet (Norvasc) 5 mg PO DAILY Blood Pressure 12/11/22
aspirin 81 mg tablet,delayed release 81 mg PO DAILY 03/30/24
mirabegron 25 mg tablet,extended release 24 hr (Myrbetriq) 25 mg PO DAILY 03/30/24
teriflunomide 7 mg tablet (Aubagio) 7 mg PO DAILY 03/30/24
cefdinir 300 mg capsule 300 mg PO BID #10 caps 04/01/24
guaifenesin 600 mg tablet, extended release 12 hr 1,200 mg (2 x 600 mg) PO Q12 #10 tabs 04/01/24
oseltamivir 75 mg capsule 75 mg PO BID #7 caps 04/01/24
vancomycin 125 mg capsule 125 mg PO BID #24 caps 04/01/24
Home Medication Changes
Pending Results: No
Total time spent discharging patient (in min): 41
--- NOTE | 2024-04-01 15:44 | CM ---
Received referral from attending for VN. Spoke with patient who denied need. Patient's daughter confirmed this as well.
Plan: Case management will continue to follow and assist with discharge planning. Home.
== END 2024-04-01 15:23 | disposition home health service (06) | DRG 872 ==
LOC: 3 WEST ACU 09:50
PROVIDERS: Physician Assistant; ADMITTING PHYSICIAN Internal Medicine; ATTENDING PHYSICIAN Internal Medicine; EMERGENCY PHYSICIAN Student in an Organized Health Care Education/Training Program; FAMILY PHYSICIAN Family Medicine
DX: A41.9 Sepsis, unspecified organism (principal); N39.0 Urinary tract infection, site not specified; E87.1 Hypo-osmolality and hyponatremia; F02.A4 Dementia in other diseases classified elsewhere, mild, with anxiety; D84.821 Immunodeficiency due to drugs; J10.1 Influenza due to other identified influenza virus with other respiratory manifestations; Z11.52 Encounter for screening for COVID-19; R09.02 Hypoxemia; R55 Syncope and collapse; E87.6 Hypokalemia; E83.51 Hypocalcemia; G35 Multiple sclerosis; G20.A1 Parkinson's disease without dyskinesia, without mention of fluctuations; I10 Essential (primary) hypertension; K21.9 Gastro-esophageal reflux disease without esophagitis; R32 Unspecified urinary incontinence; Z79.82 Long term (current) use of aspirin; Z79.69 Long term (current) use of other immunomodulators and immunosuppressants; Z90.710 Acquired absence of both cervix and uterus
CPT/HCPCS: 71046; 80053; 81003; 81015; 83735; 84484; 85025; 85027; 87086; 87502; 87811; 93005; 96360; 96361; 97163; 97166; 99285